=== PATIENT | male | born 1945 | race Caucasian/White ===

== ENCOUNTER 2019-03-18 09:08 | Outpatient (CLI) ==
[2014-05-31 08:16] VITALS: BMI 20.5
--- NOTE | 2019-03-18 09:59 | DI ---
EXAM: Left hip two views HISTORY: Hip pain FINDINGS: Bones appear demineralized. There is moderate left hip osteoarthritis. 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 Vascular calcifications are present. IMPRESSION: Arthropathy of the lower spine and hip.
--- NOTE | 2019-03-18 10:12 | DI ---
EXAM: Lumbar spine five views HISTORY: Back pain FINDINGS: No comparison. Mild scoliosis is present. 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 Lateral projections reveal moderate degenerative disc and facet disease of the lower lumbar spin e and lumbosacral junction. No obvious fracture or spondylolisthesis. Oblique views reveal intact p ars interarticularis structures. Vascular calcifications are present IMPRESSION: 1. Moderate degenerative disc and facet disease at the lumbosacral junction and lower spine. Mild s coliosis.
== END 2019-03-18 09:09 | disposition home or self-care (01) ==
LOC: RAD 09:08
PROVIDERS: ATTEND Family Medicine
DX: M54.5 Low back pain (principal); G89.29 Other chronic pain; M25.552 Pain in left hip